=== PATIENT | male | born 1995 | race Caucasian/White ===

== ENCOUNTER 2018-05-29 14:55 | Emergency (ER) | payer BC ==
[~2018-05-29] VITALS: Ht 177.8 cm; Wt 72.6 kg
[2018-05-29 15:19] VITALS: Ht 177.8 cm; Wt 72.6 kg
[2018-05-29 16:15] LABS: CALCIUM 8.8 mg/dL (8.5-10.1); CARBON DIOXIDE 31.8 mmol/L (21-32); CHLORIDE SERUM 105 mmol/L (98-107); GFR1 > 60 mL/min; GLUCOSE SERUM 112 mg/dL (74-106); POTASSIUM SERUM 3.7 mmol/L (3.5-5.1); SODIUM SERUM 142 mmol/L (136-145)
[2018-05-29 16:19] LABS: ALBUMIN 4.7 g/dL (3.4-5.0); ALKALINE PHOSPHATASE 86 U/L (46-116); ALT/SGPT 25 U/L (16-63); AST/SGOT 25 U/L (15-37); TOTAL PROTEIN, SERUM 7.9 g/dL (6.4-8.2)
[2018-05-29 16:27] LABS: BASOPHIL % 0.7 % (0-2); PLATELET COUNT 183 x10^3mcL (130-400); RED CELL DISTRIBUTION WIDTH 12.9 % (11.5-14.5)
[2018-05-29 20:24] VITALS: BP 140/63
== END 2018-05-29 20:24 | disposition home or self-care (01) ==
LOC: ED 14:55
PROVIDERS: Emergency Medicine
DX: S30.1XXA Contusion of abdominal wall, initial encounter (principal); S70.02XA Contusion of left hip, initial encounter; S70.01XA Contusion of right hip, initial encounter; M54.5 Low back pain; F17.210 Nicotine dependence, cigarettes, uncomplicated; V43.52XA Car driver injured in collision with other type car in traffic accident, initial encounter; Y93.I9 Activity, other involving external motion; Y92.488 Other paved roadways as the place of occurrence of the external cause; Y99.8 Other external cause status
CPT/HCPCS: 36415; Q9967

== ENCOUNTER 2019-03-11 18:52 | Emergency (ER) | payer SELFPAY ==
[~2019-03-11] VITALS: Ht 177.8 cm; Wt 68.7 kg
[2019-03-11 19:09] VITALS: BP 118/77; Ht 177.8 cm; Wt 68.7 kg
== END 2019-03-11 21:58 | disposition left against medical advice (07) ==
LOC: ED 18:52
DX: Z53.21 Procedure and treatment not carried out due to patient leaving prior to being seen by health care provider (principal)

== ENCOUNTER 2019-07-05 00:01 | Emergency (ER) | payer SELFPAY ==
[~2019-07-05] VITALS: Ht 177.8 cm; Wt 72.6 kg
[2019-07-05 00:16] VITALS: Ht 177.8 cm; Wt 72.6 kg
[2019-07-05 00:32] LABS: microscopic required? NO
[2019-07-05 00:36] LABS: UA SPECIFIC GRAVITY <=1.005 (1.005-1.035); urine erythrocyte NEGATIVE (NEGATIVE)
[2019-07-05 00:37] LABS: BASOPHIL % 0.8 % (0-2); PLATELET COUNT 228 x10^3mcL (130-400); RED CELL DISTRIBUTION WIDTH 13.6 % (11.5-14.5)
[2019-07-05 00:48] LABS: CALCIUM 8.1 mg/dL (8.5-10.1); CARBON DIOXIDE 24.7 mmol/L (21-32); CHLORIDE SERUM 111 mmol/L (98-107); CREATININE SERUM 0.8 mg/dL (0.7-1.3); GFR1 > 60 mL/min; GLUCOSE SERUM 111 mg/dL (74-106); POTASSIUM SERUM 3.9 mmol/L (3.5-5.1); SODIUM SERUM 149 mmol/L (136-145)
[2019-07-05 00:52] LABS: ALBUMIN 4.1 g/dL (3.4-5.0); ALKALINE PHOSPHATASE 114 U/L (46-116); ALT/SGPT 28 U/L (16-63); AST/SGOT 19 U/L (15-37); BILIRUBIN TOTAL 0.3 mg/dL (0.20-1.00); TOTAL PROTEIN, SERUM 7.2 g/dL (6.4-8.2)
[2019-07-05 01:20] LABS: AMPHETAMINE QUAL UR NONE DETECTED (See below)
[2019-07-05 05:58] VITALS: BP 119/77
== END 2019-07-05 05:58 | disposition home or self-care (01) ==
LOC: ED 00:01
PROVIDERS: Emergency Medicine
DX: F10.129 Alcohol abuse with intoxication, unspecified (principal); R45.851 Suicidal ideations
CPT/HCPCS: 36415; G0480